=== PATIENT | male | born 1955 | race Caucasian/White ===

== ENCOUNTER 2020-01-11 18:16 | Emergency (ER) | payer OTHER ==
[~2020-01-11] VITALS: Ht 195.6 cm; Wt 110.3 kg
[2020-01-11] MEDS ORDERED: OMNIPAQUE 350 MG/ML, 100ML BOTTLE ONE (18:50)
--- NOTE | 2020-01-11 19:01 | NUR ---
REPORT FROM JIMI LUTZ ASSUMING CARE OF PT AT THIS TIME
[2020-01-11 19:02] LABS: BASOPHILS # (AUTO) 0.01 x10^3/uL (0-0.1); BASOPHILS % (AUTO) 0 % (0-1); EOSINOPHILS # (AUTO) 0.02 x10^3/uL (0-0.4); EOSINOPHILS % (AUTO) 0 % (1-7); LYMPHOCYTES # (AUTO) 1.11 x10^3/uL (1-3.4); LYMPHOCYTES % (AUTO) 16 % (22-44); MD NO; MEAN CORPUSCULAR HEMOGLOBIN 30.9 pg (27.5-34.5); MEAN CORPUSCULAR HGB CONC 33.3 g/dL (33.2-36.2); MEAN CORPUSCULAR VOLUME 92.7 fL (81-97); MEAN PLATELET VOLUME 7.8 fL (7.4-10.4); MONOCYTES % (AUTO) 6 % (2-9); NEUTROPHILS # (AUTO) 5.53 x10^3/uL (1.8-6.8); NEUTROPHILS % (AUTO) 78 % (42-75); PLATELET COUNT 265 x10^3/uL (130-400); RED BLOOD COUNT 5.28 x10^6/uL (4.38-5.82); RED CELL DISTRIBUTION WIDTH 13.9 % (9.4-14.8)
[2020-01-11 19:05] LABS: ALANINE AMINOTRANSFERASE 29 U/L (12-78); ALBUMIN 3.7 g/dL (3.4-5.0); ANION GAP 6 mmol/L (5-15); CALCIUM 8.8 mg/dL (8.5-10.1); CHLORIDE 106 mmol/L (98-107); CREATININE 1.17 mg/dL (0.7-1.3)
[2020-01-11 19:07] LABS: ALKALINE PHOSPHATASE 64 U/L (45-117); BILIRUBIN,TOTAL 1.1 mg/dL (0.2-1.0); TOTAL PROTEIN 7.2 g/dL (6.4-8.2)
--- NOTE | 2020-01-11 19:16 | NUR ---
PT TO CT AT THIS TIME
--- NOTE | 2020-01-11 19:27 | NUR ---
PT BACK FROM CT
[2020-01-11 20:40] VITALS: BP 119/77
--- NOTE | 2020-01-11 20:41 | NUR ---
Patient/Caregiver given discharge instructions and they have confirmed that they understand the instructions. Patient ambulatory with steady gait.
== END 2020-01-11 20:42 | disposition home or self-care (01) ==
LOC: ED 20:38
DX: R10.84 Generalized abdominal pain (principal); K59.00 Constipation, unspecified; R11.0 Nausea
CPT/HCPCS: 36415; 74177; 80053; 83605; 83690; 85025; 99285; Q9967

== ENCOUNTER 2021-02-18 23:01 | Emergency (ER) | payer OTHER ==
[~2021-02-18] VITALS: Ht 195.6 cm; Wt 108.6 kg
--- NOTE | 2021-02-18 23:58 | NUR ---
PT AMBULATORY WITH STEADY GAIT FROM LOBBY TO ED ROOM 9
--- NOTE | 2021-02-18 23:58 | NUR ---
INITIAL PT CONTACT. PT PRESENTS TO ED STATING "I THINK I HAVE COVID, I WAS AROUND A FAMILY MEMBER IN THE SAME HOUSE ABOUT 2 WEEKS AGO THAT WAS POSITIVE AND NOW I'M SICK." PT C/O COUGH, FISHER, SOB, "FEELING REALLY FATIGUED AND RUN DOWN." PT REPORTS USE OF HOME PULSE OX WITH "LOW READINGS, LIKE 88." PT SITTING UPRIGHT ON GURNEY, PLACED ON CONTINUOUS MONITORING. CALL LIGHT AND PERSONAL BELONGINGS WITHIN REACH. AWAITING ERP.
[2021-02-19 00:04] VITALS: BP 126/79
--- NOTE | 2021-02-19 01:00 | NUR ---
Patient given discharge instructions and they have confirmed that they understand the instructions. Patient ambulatory with steady gait. NAD, all questions answered appropriately, denies additional needs at this time. No personal belongings left in room after discharge.
== END 2021-02-19 01:01 | disposition home or self-care (01) ==
LOC: MERGE 23:50 → ED 23:50
DX: B34.9 Viral infection, unspecified (principal); Z20.822 Contact with and (suspected) exposure to COVID-19; R05 Cough; R51.9 Headache, unspecified
CPT/HCPCS: 99283; U0003; U0005